=== PATIENT | female | born 1955 | race Caucasian/White ===

== ENCOUNTER 2017-01-11 12:43 | Emergency (ER) | payer MEDICARE ==
--- NOTE | 2017-01-11 13:00 | Emergency Department Record ---
History of Present Illness - General Chief Complaint: Chest Pain Stated Complaint: CHEST PRESSSURE Time Seen by Provider: 01/11/17 12:58 Source: Patient Mode of Arrival: Ambulatory Limitations: No limitations - History of Present Illness Initial Comments: The patient is here due to a 3 day hx of vague chest discomfort. She is feeling an aching pain over her sternum and R and L lateral chest area's. The discomfort is intermittent and is sometimes associated with EFREN, but no sweating or nausea. She has no hx of similar issues or pain. She also has developed a cough recently with pain in the anterior chest while coughing. There is no reported fever, chills, BRASWELL, or visual changes. MD Complaint: Chest pain Onset/Timin -: Days(s) Onset: During exertion, During rest Pain Location: Substernal, Left chest, Right chest Severity: Moderate Quality: Aching Consistency: Constant Improves With: Remaining still Worsens With: Other Context: Recent illness Anginal Symptoms: Dyspnea - Related Data Home Medications Medication Instructions Recorded Confirmed Last Taken Ascorbic Acid [Vitamin C with Bev 1,000 mg PO DAILY 08/10/15 01/11/17 1 Day Ago Hips] Aspirin [Adult Low Dose Aspirin EC] 81 mg PO DAILY 08/10/15 01/11/17 1 Day Ago Bee Pollen 550 mg PO DAILY 08/10/15 01/11/17 1 Day Ago Loperamide HCl [Anti-Diarrheal] 2 mg PO DAILY PRN 08/10/15 01/11/17 1 Day Ago Multivitamin [Multi-Vitamin Daily] 1 each PO DAILY 08/10/15 01/11/17 1 Day Ago Budesonide/Formoterol Fumarate 1 puff IH BID puff 12/28/16 01/11/17 1 Day Ago [Symbicort 160-4.5 Mcg Inhaler] Calcium Carb/Mag Ox/Zinc Sulf 1 each PO DAILY NS 12/28/16 01/11/17 1 Day Ago [Cxggxjv-Ermmurren-Rash Tablet] Cholecalciferol (Vitamin D3) 2,000 unit PO DAILY tab 12/28/16 01/11/17 1 Day Ago [Vitamin D3] Cyclobenzaprine HCl 5 mg PO 3XWEEK tab 12/28/16 01/11/17 1 Day Ago Ipratropium [place] [Atrovent Hfa] 12.9 gm IH WEEKLY inhaler 12/28/16 01/11/17 1 Day Ago Ipratropium/Albuterol Sulfate 3 ml NEB BID ml 12/28/16 01/11/17 1 Day Ago [Iprat-Albut 0.5-3(2.5) Mg/3 Ml] Naproxen Sodium [Aleve] 220 mg PO DAILY cap 12/28/16 01/11/17 1 Day Ago Pneumotrophin Pmg 1 tab TID 12/28/16 01/11/17 1 Day Ago Rhus Tox Homeopathic QID 12/28/16 1 Day Ago Women's Probiotic QHS 12/28/16 1 Day Ago Previous Rx's Medication Instructions Recorded Doxycycline Monohydrate [Mondoxyne 100 mg PO BID #14 capsule 01/11/17 Nl] Prednisone [Prednisone 20Mg] 40 mg PO DAILY #10 tab 01/11/17 Allergies Allergy/AdvReac Type Severity Reaction Status Date / Time acetaminophen [From Vicodin] Allergy HIVES Verified 01/11/17 12:48 azithromycin [From Zithromax] Allergy intense Verified 01/11/17 12:48 sweating and diarrhea hydrocodone bitartrate Allergy HIVES Verified 01/11/17 12:48 [From Vicodin] latex Allergy HIVES Verified 01/11/17 12:48 bupropion HCl AdvReac Severe swelling Verified 01/11/17 12:48 [From Wellbutrin] of tongue and throat fluoxetine HCl [From Prozac] AdvReac Intermediate not able Verified 01/11/17 12: 48 to sleep paroxetine HCl [From Paxil] AdvReac Mild constipatio Verified 01/11/17 12:48 n Travel Screening - Travel/Exposure Within Last 30 Days Have you traveled within the last 30 days?: No - Travel/Exposure Within Last Year Have you traveled outside the [place] in the last year?: No - Additonal Travel Details Have you been exposed to anyone with a communicable illness?: No - Travel Symptoms Symptom Screening: None Review of Systems Constitutional: Denies: Chills, Fever Eyes: Denies: Eye discharge ENT: Denies: Congestion Respiratory: Reports: Cough, Dyspnea (chronic.) Cardiovascular: Reports: Chest pain, Dyspnea on exertion. Denies: Arrhythmia Endocrine: Denies: Fatigue Gastrointestinal: Denies: Diarrhea, Vomiting Genitourinary: Denies: Dysuria Musculoskeletal: Denies: Back pain Skin: Denies: Bruising Past Medical History - SOCIAL HISTORY Smoking Status: Former smoker Alcohol Use: None Drug Use: None - RESPIRATORY Hx Bronchitis: Yes Hx COPD: Yes - CARDIOVASCULAR Hx Cardio Disorders: No - NEURO Hx Neuro Disorders: No - GI Hx GI Disorders: Yes Hx Abdominal Pain: Yes (all over stomach, increases w/ eating) Hx Nausea/Vomiting: Yes (nausea increases w/eating) Hx Ulcer: Yes Hx Wt Loss/Wt Gain: Yes (gain 16lbs in 1 year) Hx of Polyps: Yes Comment:: c/o bloating, barretts, h.pylori - Hx Genitourinary Disorders: Yes Hx Kidney Stones: (n/a) Hx UTI: Yes (hx of frequent UTI's) - ENDOCRINE Hx Endocrine Disorders: No - MUSCULOSKELETAL Hx Musculoskeletal Disorders: Yes Hx Arthritis: Yes - PSYCH Hx Psych Problems: Yes Hx Anxiety: Yes (n/a) Hx Depression: Yes - HEMATOLOGY/ONCOLOGY Hx Hematology/Oncology Disorders: Yes Hx Blood Transfusions: Yes (r/t [facility] 1977) Hx Blood Transfusion Reaction: No Family Medical History Any Significant Family History?: Yes Hx Cancer: Mother, Children, Brother/Sister *Cancer Comment: breast, uterine, cervical Hx Diabetes: Mother, Brother/Sister Hx Heart Disease: Brother/Sister Hx HTN: Brother/Sister Physical Exam - General General Appearance: Alert, Oriented x3, Cooperative, No acute distress - Head Head exam: Atraumatic, Normocephalic, Normal inspection - Eye Eye exam: Normal appearance, PERRL - ENT Throat exam: Normal inspection. negative: Tonsillar erythema, Tonsillar exudate - Neck Neck exam: Normal inspection, Full ROM. negative: Tenderness - Respiratory Respiratory exam: Chest wall tenderness (There is some reproducible tenderness to palpation over the sternum and lateral rib area.), Decreased breath sounds. negative: Normal lung sounds bilaterally, Accessory muscle use, Prolonged expiratory, Respiratory distress, Wheezes - Cardiovascular Cardiovascular Exam: Regular rate, Normal rhythm, Normal heart sounds - GI/Abdominal GI/Abdominal exam: Soft, Normal bowel sounds. negative: Tenderness - Extremities Extremities exam: Normal inspection, Full ROM, Normal capillary refill. negative: Tenderness - Neurological Neurological exam: Alert, Normal gait. negative: Abnormal gait, Motor sensory deficit Course Vital Signs 01/11/17 12:48 Temperature 97.6 F Pulse Rate 99 H Respiratory 16 Rate Blood Pressure 132/82 Pulse Ox 99 - Reevaluation(s) Reevaluation #1: The patient is doing very well presently and denies any SOB, EFREN or any new pain. She is still having the R and L lateral rib pain which is still 100% reproducible but denies any anterior chest pain. The patient is speaking in full sentences and has a biox on her 2 Liters of O2 of 100%. I explained to her that her tests are all WNL and that I do not believe her issues are cardiac in nature. Because of her extensive hx I did recommend keeping the patient in the hospital overnight for observation. The patient is refusing the recommendation. I explained to her by NOT staying here overnight she could go home and have an IL, stroke, become disabled and even . The patient understands and accepts the risks and understands we cannot be held liable for any bad outcomes which occur due to NOT keeping her here for further eval. The patient has proper decision making capacity and was instructed to return to the ER for any problems or changes in her pain. 01/11/17 14:39 Medical Decision Making - Data Complexity MDM Data: Labs Ordered and/or Reviewed, X-Ray Ordered and/or Reviewed, EKG Ordered and/or Reviewed - Lab Data Result diagrams: 01/11/17 13:28 01/11/17 13:28 - EKG Data -: EKG Interpreted by Me EKG: No Acute Changes, Normal EKG, Unchanged From Previous - Radiology Data Radiology results: Report reviewed (CXR: COPD, chronic changes, O/W neg.) Disposition Disposition: Discharge Clinical Impression: Chest wall discomfort Disposition: Home, Self-Care Condition: (1) Good Instructions: Chest Wall Pain (ED) Additional Instructions: Please continue your regular medicines and add the Doxycycline and Prednisone as directed. Please see your PCP early next week for recheck. Return to the ER for any increased pain, changes in your pain or any worsening symptoms. Prescriptions: Doxycycline Monohydrate [Mondoxyne Nl] 100 mg PO BID #14 capsule Prednisone [Prednisone 20Mg] 40 mg PO DAILY #10 tab Forms: Patient Portal Access Time of Disposition: 14:45
[2017-01-11] MEDS ORDERED: IPRATROPIUM/ALBUTEROL (0.5MG/3MG) NEB INH ONE (13:17)
[2017-01-11 13:34] LABS: BASO % 0.5 % (0-6); EOS % 3.8 % (0-6); GRAN % 69.4 % (47-80); HEMATOCRIT 38.8 % (35.0-47.0); HEMOGLOBIN 12.8 gm/dl (11.6-16.0); LYMPH % 19.7 % (16-45); MEAN CELL VOLUME 91.1 fl (81-97); MONO % 6.6 % (0-9); PLATELET COUNT 261 K/uL (130-400); RED BLOOD COUNT 4.26 M/uL (3.80-5.40); RED CELL DISTRIBUTION WIDTH 12.7 % (11.5-14.5); WHITE BLOOD COUNT W/O DIFF 8.4 K/uL (4.2-12.2)
[2017-01-11 13:48] LABS: ANION GAP 10.2 (7-16); BLOOD UREA NITROGEN 6 mg/dL (7-17); CARBON DIOXIDE 30.8 mmol/L (22-30); CREATINE PHOSPHOKINASE 46 U/L (30-135); CREATININE 0.6 mg/dL (0.52-1.04); EST GLOMERULAR FILTRATION RATE > 60 ml/min; GLUCOSE,RANDOM 95 mg/dL (70-110); INR 0.93; PARTIAL THROMBOPLASTIN TIME 26.4 SECONDS (24.5-39.1); PROTHROMBIN TIME (PATIENT) 10.5 SECONDS (9.5-12.1)
[2017-01-11 14:00] LABS: CKMB 1.1 ug/L (0-6); TROPONIN I < 0.012 ng/mL (0.00-0.034)
== END 2017-01-11 14:52 | disposition home or self-care (01) ==
LOC: ER 12:43
DX: R07.89 Other chest pain (principal); R05 Cough; R06.00 Dyspnea, unspecified; J44.9 Chronic obstructive pulmonary disease, unspecified; Z87.891 Personal history of nicotine dependence
CPT/HCPCS: 71020; 80048; 82550; 82553; 84484; 85025; 85610; 85730; 93005; 93010; 94640; 99284

== ENCOUNTER 2017-01-27 05:03 | Observation (INO) | payer MEDICARE ==
[2017-01-27 05:27] LABS: ALB/GLOB RATIO 1.3 (1.1-1.8); ALBUMIN 4.4 gm/dL (3.5-5.0); ALKALINE PHOSPHATASE 88 U/L (38-126); ALT/SGPT 31 U/L (9-52); ANION GAP 8.9 (7-16); AST/SGOT 30 U/L (14-36); BILIRUBIN,TOTAL 0.62 mg/dL (0.2-1.3); BLOOD UREA NITROGEN 8 mg/dL (7-17); CARBON DIOXIDE 32.1 mmol/L (22-30); CREATININE 0.5 mg/dL (0.52-1.04); EST GLOMERULAR FILTRATION RATE > 60 ml/min; GLUCOSE,RANDOM 147 mg/dL (70-110); TOTAL PROTEIN 7.7 gm/dL (6.3-8.2)
[2017-01-27 05:28] LABS: BASO % 0.7 % (0-6); EOS % 8.5 % (0-6); GRAN % 61.4 % (47-80); HEMATOCRIT 39.7 % (35.0-47.0); HEMOGLOBIN 12.8 gm/dl (11.6-16.0); LYMPH % 21.8 % (16-45); MEAN CELL VOLUME 91.5 fl (81-97); MEAN CORPUSCULAR HEMOGLOBIN 29.5 pg (27-33); MEAN CORPUSCULAR HGB CONC 32.2 g/dl (32-36); MEAN PLATELET VOLUME 9.7 fl (7.4-10.4); MONO % 7.6 % (0-9); PLATELET COUNT 316 K/uL (130-400); RED BLOOD COUNT 4.34 M/uL (3.80-5.40); RED CELL DISTRIBUTION WIDTH 12.8 % (11.5-14.5); WHITE BLOOD COUNT W/O DIFF 10.5 K/uL (4.2-12.2)
[2017-01-27] MEDS ORDERED: IPRATROPIUM/ALBUTEROL (0.5MG/3MG) NEB INH ONE (05:29)
--- NOTE | 2017-01-27 05:32 | Emergency Department Record ---
History of Present Illness - General Chief Complaint: Shortness of breath Stated Complaint: EFREN Time Seen by Provider: 01/27/17 05:23 Source: Patient Mode of Arrival: EMS Limitations: No limitations - History of Present Illness Initial Comments: The patient is here due to a 2 day hx of cough and SOB. She denies any CP, fever , or chills but is having mild nausea. She has a long hx of COPD and is on home . The patient did see her PCP Maggy Carpenter on 01/16/17 and was placed on 7 days of Levaquin which she just finished. Complaint: Cough, Shortness of breath Onset/Timin -: Days(s) Severity scale (1-10): 7 Consistency: Intermittent Known History Of: COPD Treatments Prior to Arrival: Bronchodilator - Related Data Home Oxygen Therapy: Yes Home Oxygen Amount: 2 Liters Home Medications Medication Instructions Recorded Confirmed Last Taken Ascorbic Acid [Vitamin C with Bev 1,000 mg PO DAILY 08/10/15 01/27/17 1 Day Ago Hips] Aspirin [Adult Low Dose Aspirin EC] 81 mg PO DAILY 08/10/15 01/27/17 1 Day Ago Bee Pollen 550 mg PO DAILY 08/10/15 01/27/17 1 Day Ago Loperamide HCl [Anti-Diarrheal] 2 mg PO DAILY PRN 08/10/15 01/27/17 1 Day Ago Multivitamin [Multi-Vitamin Daily] 1 each PO DAILY 08/10/15 01/27/17 1 Day Ago Calcium Carb/Mag Ox/Zinc Sulf 1 each PO DAILY NS 12/28/16 01/27/17 1 Day Ago [Eabxumd-Lywjkvhuz-Jdut Tablet] Cholecalciferol (Vitamin D3) 2,000 unit PO DAILY tab 12/28/16 01/27/17 1 Day Ago [Vitamin D3] Cyclobenzaprine HCl 5 mg PO 3XWEEK tab 12/28/16 01/27/17 1 Day Ago Ipratropium/Albuterol Sulfate 3 ml NEB BID ml 12/28/16 01/27/17 1 Day Ago [Iprat-Albut 0.5-3(2.5) Mg/3 Ml] Naproxen Sodium [Aleve] 220 mg PO DAILY cap 12/28/16 01/27/17 1 Day Ago Pneumotrophin Pmg 1 tab PO TID 12/28/16 01/27/17 1 Day Ago Rhus Tox Homeopathic 1 each PO QID 12/28/16 01/27/17 1 Day Ago Women's Probiotic 1 tab PO QHS 12/28/16 01/27/17 1 Day Ago Pulsatilla 4 tab PO QID 01/16/17 01/27/17 Unknown Budesonide/Formoterol Fumarate 1 inh IH BID 01/27/17 01/27/17 Unknown [Symbicort 160-4.5 Mcg Inhaler] Hydroxyzine Pamoate [Vistaril] 25 mg PO Q6H 01/27/17 01/27/17 Unknown Ipratropium [place] [Atrovent Hfa] 12.9 gm IH WEEKLY 01/27/17 01/27/17 Unknown Allergies Allergy/AdvReac Type Severity Reaction Status Date / Time bupropion HCl Allergy SWELLING Verified 01/27/17 05:45 [From Wellbutrin] OF THE TONGUE hydrocodone bitartrate Allergy HIVES Verified 01/27/17 05:45 [From Vicodin] latex Allergy HIVES Verified 01/27/17 05:45 azithromycin [From Zithromax] AdvReac DIARRHEA Verified 01/27/17 05:45 fluoxetine HCl [From Prozac] AdvReac insomnia Verified 01/27/17 05:45 paroxetine HCl [From Paxil] AdvReac CONSTIPATIO Verified 01/27/17 05:45 N Travel Screening - Travel/Exposure Within Last 30 Days Have you traveled within the last 30 days?: No - Travel Symptoms Symptom Screening: None Review of Systems Constitutional: Denies: Chills, Fever Eyes: Denies: Eye discharge ENT: Reports: Congestion Respiratory: Reports: Cough, Dyspnea Cardiovascular: Denies: Chest pain Endocrine: Denies: Fatigue Gastrointestinal: Denies: Diarrhea Genitourinary: Denies: Dysuria Musculoskeletal: Denies: Back pain Skin: Denies: Bruising Past Medical History - SOCIAL HISTORY Smoking Status: Former smoker - RESPIRATORY Hx Respiratory Disorders: Yes Hx Bronchitis: Yes Hx COPD: Yes - CARDIOVASCULAR Hx Cardio Disorders: No - NEURO Hx Neuro Disorders: No - GI Hx GI Disorders: Yes Hx Abdominal Pain: Yes (all over stomach, increases w/ eating) Hx Nausea/Vomiting: Yes (nausea increases w/eating) Hx Ulcer: Yes Hx Wt Loss/Wt Gain: Yes (gain 16lbs in 1 year) Hx of Polyps: Yes Comment:: c/o bloating, barretts, h.pylori - Hx Genitourinary Disorders: Yes Hx Kidney Stones: (n/a) Hx UTI: Yes (hx of frequent UTI's) - ENDOCRINE Hx Endocrine Disorders: No - MUSCULOSKELETAL Hx Musculoskeletal Disorders: Yes Hx Arthritis: Yes - PSYCH Hx Psych Problems: Yes Hx Anxiety: Yes (n/a) Hx Depression: Yes - HEMATOLOGY/ONCOLOGY Hx Hematology/Oncology Disorders: Yes Hx Blood Transfusions: Yes (r/t [facility] 1977) Hx Blood Transfusion Reaction: No Family Medical History Any Significant Family History?: Yes Hx Cancer: Mother, Children, Brother/Sister *Cancer Comment: breast, uterine, cervical Hx Diabetes: Mother, Brother/Sister Hx Heart Disease: Brother/Sister Hx HTN: Brother/Sister Physical Exam - General General Appearance: Alert, Oriented x3, Cooperative, No acute distress - Head Head exam: Atraumatic, Normocephalic, Normal inspection - Eye Eye exam: Normal appearance, PERRL - ENT Throat exam: Normal inspection. negative: Tonsillar erythema, Tonsillar exudate - Neck Neck exam: Normal inspection, Full ROM. negative: Tenderness - Respiratory Respiratory exam: Accessory muscle use (mild.), Decreased breath sounds, Prolonged expiratory, Wheezes. negative: Normal lung sounds bilaterally (The patient is able to speak in full sentences with little effort.), Respiratory distress - Cardiovascular Cardiovascular Exam: Regular rate, Normal rhythm, Normal heart sounds - GI/Abdominal GI/Abdominal exam: Soft, Normal bowel sounds. negative: Tenderness - Extremities Extremities exam: Normal inspection, Full ROM, Normal capillary refill. negative: Tenderness - Neurological Neurological exam: Alert, Normal gait. negative: Abnormal gait, Motor sensory deficit Course Vital Signs 01/27/17 01/27/17 01/27/17 05:10 05:12 05:24 Temperature 97.8 F Pulse Rate 104 H Pulse Rate [ 101 H Metal Riveter ] Pulse Rate [ 105 H Pulse Ox Probe] Respiratory 14 20 12 Rate Blood Pressure 149/120 107/76 [Left Arm] Pulse Ox 98 100 - Reevaluation(s) Reevaluation #1: The patient is doing better but still having significant EFREN. She does not want anther breathing tx. She has had 2 Duoneb and an Albuterol tx since EMS arrived and since she has been here in the ER. Due to her persistent EFREN we will admit the patient here at [facility]. 01/27/17 06:17 Reevaluation #2: The patient's breathing is slightly improved but she still has significantly decreased aeration and wheezing at the bases. 01/27/17 06:24 Medical Decision Making - Data Complexity MDM Data: Labs Ordered and/or Reviewed, X-Ray Ordered and/or Reviewed, EKG Ordered and/or Reviewed - Lab Data Result diagrams: 01/27/17 04:30 01/27/17 04:30 Lab Results 01/27/17 01/27/17 Range/Units 04:30 04:30 WBC 10.5 (4.2-12.2) K/uL RBC 4.34 (3.80-5.40) M/uL Hgb 12.8 (11.6-16.0) gm/dl Hct 39.7 (35.0-47.0) % MCV 91.5 (81-97) fl MCH 29.5 (27-33) pg MCHC 32.2 (32-36) g/dl RDW 12.8 (11.5-14.5) % Plt Count 316 (130-400) K/uL MPV 9.7 (7.4-10.4) fl Gran % 61.4 (47-80) % Lymphocytes % 21.8 (16-45) % Monocytes % 7.6 (0-9) % Eosinophils % 8.5 H (0-6) % Basophils % 0.7 (0-6) % Sodium 138 (136-145) mmol/L Potassium 4.3 (3.5-5.1) mmol/L Chloride 97 L (98-107) mmol/L Carbon Dioxide 32.1 H (22-30) mmol/L Anion Gap 8.9 (7-16) BUN 8 (7-17) mg/dL Creatinine 0.5 L (0.52-1.04) mg/dL Estimated GFR > 60 ml/min Random Glucose 147 H (70-110) mg/dL Calcium 9.0 (8.5-10.1) mg/dL Total Bilirubin 0.62 (0.2-1.3) mg/dL AST 30 (14-36) U/L ALT 31 (9-52) U/L Alkaline Phosphatase 88 (38-126) U/L Total Protein 7.7 (6.3-8.2) gm/dL Albumin 4.4 (3.5-5.0) gm/dL Globulin 3.3 (1.4-4.8) gm/dL Albumin/Globulin Ratio 1.3 (1.1-1.8) - EKG Data -: EKG Interpreted by Me EKG: No Acute Changes - Radiology Data Radiology results: Report reviewed (CXR: Severe COPD, no acute changes.) Disposition Disposition: Admit Clinical Impression: COPD exacerbation Decision to Admit: Admit from ER Decision to Admit Date: 01/27/17 Decision to Admit Time: 06:18 Accepting Physician: Nadege Time Discussed w/Accepting Physician: 06:19 Forms: Patient Portal Access Time of Disposition: 06:19
[2017-01-27 05:52] LABS: CREATINE PHOSPHOKINASE 72 U/L (30-135)
[2017-01-27 06:14] LABS: TROPONIN I < 0.012 ng/mL (0.00-0.034)
[2017-01-27] MEDS ORDERED: CYCLOBENZAPRINE 10MG TABLET PO ONE (07:23)
[2017-01-27] MEDS ORDERED: ALBUTEROL SULFATE (0.083%) 2.5 MG/3 ML NEB INH ONE (09:45)
[2017-01-27] MEDS ORDERED: ESCITALOPRAM OXALATE 5 MG PO SCH (13:46)
[2017-01-27] MEDS ORDERED: HYDROXYZINE PAMOATE 25 MG CAPSULE PO SCH (13:46)
[2017-01-27] MEDS ORDERED: CYCLOBENZAPRINE 10MG TABLET PO PRN (14:44)
[2017-01-27] MEDS ORDERED: NAPROXEN 250 MG TABLET PO PRN (14:45)
[2017-01-27] MEDS: IPRATROPIUM/ALBUTEROL (0.5MG/3MG) NEB INH SCH ×4 (14:47→21:54)
--- NOTE | 2017-01-27 14:49 | History & Physical ---
History of Present Illness - Date of Service Date of Service for History & Physical: 01/27/17 - History of Present Illness Admitting Diagnosis: 1. COPD Excacerbation. History of Present Illness: 61 yo F with past medical history of COPD, barrets esophagus, arthritis, anxiety /depression, former smoker, presented to ED last night for 2 day hx of cough and SOB. She denies any CP, fever, or chills but is having mild nausea. She has a long hx of COPD and is on home . The patient did see her PCP Maggy Carpenter on 01/16/17 and was placed on 7 days of Levaquin which she just finished. Clinic Note: from 01/16/17 since late last fall pt has been in and out of [facility] w/exacerbations of COPD. PT repsented last week with chestpain and looking unhealthy. in consultation with Dr Light sent pt to ER for work up - negative cardiac work up and pt refused overnight admit although advised to be admitted for monitoring/observation. pain likely skelatal muscle from use of chest muscle to breathing and from coughing. Travel Screening - Travel/Exposure Within Last 30 Days Have you traveled within the last 30 days?: No - Travel/Exposure Within Last Year Have you traveled outside the [place] in the last year?: No - Additonal Travel Details Have you been exposed to anyone with a communicable illness?: No - Travel Symptoms Symptom Screening: None Review of Systems Constitutional: Denies: Chills, Fever Eyes: Denies: Eye discharge ENT: Reports: Congestion Respiratory: Reports: Cough, Dyspnea Cardiovascular: Denies: Chest pain Endocrine: Denies: Fatigue Gastrointestinal: Denies: Diarrhea Genitourinary: Denies: Dysuria Musculoskeletal: Denies: Back pain Skin: Denies: Bruising Past Medical History - SOCIAL HISTORY Smoking Status: Former smoker - RESPIRATORY Hx Respiratory Disorders: Yes Hx Bronchitis: Yes Hx COPD: Yes - CARDIOVASCULAR Hx Cardio Disorders: No - NEURO Hx Neuro Disorders: No - GI Hx GI Disorders: Yes Hx Abdominal Pain: Yes (all over stomach, increases w/ eating) Hx Nausea/Vomiting: Yes (nausea increases w/eating) Hx Ulcer: Yes Hx Wt Loss/Wt Gain: Yes (gain 16lbs in 1 year) Hx of Polyps: Yes Comment:: c/o bloating, barretts, h.pylori - Hx Genitourinary Disorders: Yes Hx Kidney Stones: (n/a) Hx UTI: Yes (hx of frequent UTI's) - ENDOCRINE Hx Endocrine Disorders: No - MUSCULOSKELETAL Hx Musculoskeletal Disorders: Yes Hx Arthritis: Yes - PSYCH Hx Psych Problems: Yes Hx Anxiety: Yes (n/a) Hx Depression: Yes - HEMATOLOGY/ONCOLOGY Hx Hematology/Oncology Disorders: Yes Hx Blood Transfusions: Yes (r/t [facility] 1977) Hx Blood Transfusion Reaction: No Family Medical History Any Significant Family History?: Yes Hx Cancer: Mother, Children, Brother/Sister *Cancer Comment: breast, uterine, cervical Hx Diabetes: Mother, Brother/Sister Hx Heart Disease: Brother/Sister Hx HTN: Brother/Sister H&P Meds/Allergies - Allergies Allergies: Allergies Allergy/AdvReac Type Severity Reaction Status Date / Time bupropion HCl Allergy SWELLING Verified 01/27/17 05:45 [From Wellbutrin] OF THE TONGUE hydrocodone bitartrate Allergy HIVES Verified 01/27/17 05:45 [From Vicodin] latex Allergy HIVES Verified 01/27/17 05:45 azithromycin [From Zithromax] AdvReac DIARRHEA Verified 01/27/17 05:45 fluoxetine HCl [From Prozac] AdvReac insomnia Verified 01/27/17 05:45 paroxetine HCl [From Paxil] AdvReac CONSTIPATIO Verified 01/27/17 05:45 N - Home Medications Home Medications Medication Instructions Recorded Confirmed Last Taken Ascorbic Acid [Vitamin C with Bev 1,000 mg PO DAILY 08/10/15 01/27/17 1 Day Ago Hips] Aspirin [Adult Low Dose Aspirin EC] 81 mg PO DAILY 08/10/15 01/27/17 1 Day Ago Bee Pollen 550 mg PO DAILY 08/10/15 01/27/17 1 Day Ago Loperamide HCl [Anti-Diarrheal] 2 mg PO DAILY PRN 08/10/15 01/27/17 1 Day Ago Multivitamin [Multi-Vitamin Daily] 1 each PO DAILY 08/10/15 01/27/17 1 Day Ago Calcium Carb/Mag Ox/Zinc Sulf 1 each PO DAILY NS 12/28/16 01/27/17 1 Day Ago [Sbjljxv-Aobobcvgf-Fhvx Tablet] Cholecalciferol (Vitamin D3) 2,000 unit PO DAILY tab 12/28/16 01/27/17 1 Day Ago [Vitamin D3] Cyclobenzaprine HCl 5 mg PO 3XWEEK tab 12/28/16 01/27/17 1 Day Ago Ipratropium/Albuterol Sulfate 3 ml NEB BID ml 12/28/16 01/27/17 1 Day Ago [Iprat-Albut 0.5-3(2.5) Mg/3 Ml] Naproxen Sodium [Aleve] 220 mg PO DAILY cap 12/28/16 01/27/17 1 Day Ago Pneumotrophin Pmg 1 tab PO TID 12/28/16 01/27/17 1 Day Ago Rhus Tox Homeopathic 1 each PO QID 12/28/16 01/27/17 1 Day Ago Women's Probiotic 1 tab PO QHS 12/28/16 01/27/17 1 Day Ago Pulsatilla 4 tab PO QID 01/16/17 01/27/17 Unknown Budesonide/Formoterol Fumarate 1 inh IH BID 01/27/17 01/27/17 Unknown [Symbicort 160-4.5 Mcg Inhaler] Hydroxyzine Pamoate [Vistaril] 25 mg PO Q6H 01/27/17 01/27/17 Unknown Ipratropium [place] [Atrovent Hfa] 12.9 gm IH WEEKLY 01/27/17 01/27/17 Unknown - Active Medications Active Medications: Current Medications Albuterol/Ipratropium (Duoneb) 3 ml INH RESP.Q4H.[facility] Aspirin (Ecotrin (Ec)) 81 mg PO DAILY [facility] Cyclobenzaprine HCl (Flexeril) 5 mg PO DAILY PRN PRN Reason: BACK SPASM Methylprednisolone Sodium Succinate (Solu-Medrol) 60 mg IVP DAILY [facility] Naproxen (Naprosyn) 250 mg PO DAILY PRN PRN Reason: Pain - General Fluticasone/Salmeterol (Advair 250/50) 1 puff INH BID [facility] Physical Exam - Vital Signs Vital Signs: Vital Signs - Last 24 Hrs Temp Pulse Pulse Pulse Resp BP BP 01/27/17 13:46 97.7 F 109 H 109 H 16 115/69 01/27/17 13:00 98 F 106 H 19 106/75 Pulse Ox 01/27/17 13:46 96 01/27/17 13:00 95 - General General Appearance: Alert, Oriented x3, Cooperative, No acute distress Limitations: No limitations - Head Head exam: Atraumatic, Normocephalic, Normal inspection - Eye Eye exam: Normal appearance, PERRL - ENT Throat exam: Normal inspection. negative: Tonsillar erythema, Tonsillar exudate - Neck Neck exam: Normal inspection, Full ROM. negative: Tenderness - Respiratory Respiratory exam: Accessory muscle use (mild.), Decreased breath sounds, Prolonged expiratory, Wheezes. negative: Normal lung sounds bilaterally (The patient is able to speak in full sentences with little effort.), Respiratory distress - Cardiovascular Cardiovascular Exam: Regular rate, Normal rhythm, Normal heart sounds - GI/Abdominal GI/Abdominal exam: Soft, Normal bowel sounds. negative: Tenderness - Extremities Extremities exam: Normal inspection, Full ROM, Normal capillary refill. negative: Tenderness - Neurological Neurological exam: Alert, Normal gait. negative: Abnormal gait, Motor sensory deficit Results - Labs Result Diagrams: 01/27/17 04:30 01/27/17 04:30 VTE H&P Assessment - Risk for VTE Risk for VTE: Yes Risk Level: Moderate Risk Assessment Date: 01/27/17 Risk Assessment Time: 17:48 VTE Orders Placed or Will Be Placed: Yes Plan - Detailed Diagnosis and Plan (1) COPD exacerbation Current Visit: Yes Status: Acute Base Code: J44.1 - CHRONIC OBSTRUCTIVE PULMONARY DISEASE W (ACUTE) EXACERBATION Comment: 01/27/17- will place of COPD pathway. already completed 7 day course of levaquin and had been on contiueous course of steroids. Patient at rest is on 2L of oxygen extending out to 4L of oxygen with activity. Will place referral for outpatient pulmonology and increase steroids to 80mg daily. patient to remain on oxygen as per previous to keep oxygen sats 88-92%. On LAMA, LABA, ANTONINO , and inhaled corticosteroid already. Anticipate discharge tomorrow with follow up outpatient. At present prognosis unsure but nothing more can be done while inpatient. 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 Patient is very sensitive to many SSRIs and other medications. She states she best tolerated prozac but needs to take it in the morning so it doesn't keep her awake during the night.
[2017-01-27] MEDS: ASPIRIN 81 MG TABEC PO SCH (17:48)
[2017-01-27] MEDS: FLUTICASONE/SALMETEROL 250/50 DISKUS INH SCH ×2 (18:15→21:55)
[2017-01-27] MEDS: CLONAZEPAM 1MG TABLET PO SCH (18:54)
[2017-01-27] MEDS: GUAIFENESIN/D-METH. 10 ML UDC PO PRN (18:56)
[2017-01-28] MEDS: IPRATROPIUM/ALBUTEROL (0.5MG/3MG) NEB INH SCH ×4 (02:29→13:49)
[2017-01-28] MEDS: FLUTICASONE/SALMETEROL 250/50 DISKUS INH SCH (06:17)
[2017-01-28 06:28] LABS: HEMATOCRIT 35.6 % (35.0-47.0); HEMOGLOBIN 11.3 gm/dl (11.6-16.0); MEAN CELL VOLUME 92.5 fl (81-97); MEAN CORPUSCULAR HGB CONC 31.7 g/dl (32-36); MEAN PLATELET VOLUME 9.4 fl (7.4-10.4); PLATELET COUNT 271 K/uL (130-400); RED BLOOD COUNT 3.85 M/uL (3.80-5.40); RED CELL DISTRIBUTION WIDTH 12.8 % (11.5-14.5); WHITE BLOOD COUNT W/O DIFF 12.1 K/uL (4.2-12.2)
[2017-01-28 06:33] LABS: ALB/GLOB RATIO 1.3 (1.1-1.8); ALBUMIN 3.8 gm/dL (3.5-5.0); ALKALINE PHOSPHATASE 72 U/L (38-126); ALT/SGPT 29 U/L (9-52); AST/SGOT 18 U/L (14-36); BLOOD UREA NITROGEN 7 mg/dL (7-17); CREATININE 0.6 mg/dL (0.52-1.04); EST GLOMERULAR FILTRATION RATE > 60 ml/min; GLUCOSE,RANDOM 98 mg/dL (70-110); TOTAL PROTEIN 6.8 gm/dL (6.3-8.2)
[2017-01-28 06:45] LABS: MEAN CORPUSCULAR HEMOGLOBIN 29.3 pg (27-33)
[2017-01-28] MEDS: GUAIFENESIN/D-METH. 10 ML UDC PO PRN (07:03)
[2017-01-28] MEDS: CLONAZEPAM 1MG TABLET PO SCH (07:07)
[2017-01-28 07:29] LABS: PLATELET ESTIMATE NORMAL (NORMAL)
[2017-01-28] MEDS ORDERED: METHYLPREDNISOLONE PF 125MG/VIAL IVP SCH ×2 (10:00)
[2017-01-28] MEDS: ASPIRIN 81 MG TABEC PO SCH (10:32)
[2017-01-28] MEDS ORDERED: 0.9 % SODIUM CHLORIDE 10ML SYR IVP SCH (10:45)
--- NOTE | 2017-01-28 13:21 | Discharge Summary ---
Providers Discharge Summary Date: 01/28/17 Date of admission: 01/27/17 12:54 Expected Date of Discharge: 01/28/17 Attending physician: LUNA LEE Physical Exam - Vital Signs Vital Signs: Vital Signs - Last 24 Hrs Temp Pulse Pulse Pulse Resp BP Pulse Ox 01/28/17 09:44 110 H 22 97 01/28/17 09:00 107 H 22 01/28/17 08:43 95 H 20 120/67 96 01/28/17 06:17 92 H 18 01/28/17 06:13 101 H 18 98 01/28/17 02:29 96 H 16 99 01/28/17 01:00 98.3 F 95 H 12 113/58 99 01/27/17 21:54 100 H 20 94 L 01/27/17 18:47 95 01/27/17 18:20 98 H 22 96 01/27/17 18:19 98 H 22 96 01/27/17 17:06 101.8 F H 01/27/17 15:25 108 H 22 96 01/27/17 13:46 97.7 F 109 H 109 H 16 115/69 96 01/27/17 13:30 109 H 109 H 20 - General General Appearance: Alert, Oriented x3, Cooperative, No acute distress Limitations: No limitations - Head Head exam: Atraumatic, Normocephalic, Normal inspection - Eye Eye exam: Normal appearance, PERRL - ENT Throat exam: Normal inspection. negative: Tonsillar erythema, Tonsillar exudate - Neck Neck exam: Normal inspection, Full ROM. negative: Tenderness - Respiratory Respiratory exam: Accessory muscle use (mild.), Decreased breath sounds, Prolonged expiratory. negative: Normal lung sounds bilaterally (The patient is able to speak in full sentences with little effort.), Respiratory distress - Cardiovascular Cardiovascular Exam: Regular rate, Normal rhythm, Normal heart sounds - GI/Abdominal GI/Abdominal exam: Soft, Normal bowel sounds. negative: Tenderness - Extremities Extremities exam: Normal inspection, Full ROM, Normal capillary refill. negative: Tenderness - Neurological Neurological exam: Alert, Normal gait. negative: Abnormal gait, Motor sensory deficit Hospitalization - Hospitalization Admission Diagnosis: 1. COPD Excacerbation. - Problem List/Discharge Diagnosis (1) COPD exacerbation Current Visit: Yes Status: Acute Base Code: J44.1 - CHRONIC OBSTRUCTIVE PULMONARY DISEASE W (ACUTE) EXACERBATION Comment: 01/28/17- placed on COPD pathway. already completed 7 day course of levaquin and had been on continuous course of steroids. Patient at rest is on 2L of oxygen extending out to 4L of oxygen with activity. Will place referral for outpatient pulmonology and increase steroids to 80mg daily. patient to remain on oxygen as per previous to keep oxygen sats 88-92%. On LAMA, LABA, ANTONINO , and inhaled corticosteroid already with symbicort and duoneb. Patient has nebulizer at home. Will follow up outpatient with primary provider next week. At present prognosis unsure but needs to follow up with pulmonary outpatient. (2) Anxiety disorder due to medical condition Current Visit: Yes Status: Acute Base Code: F41.8 - OTHER SPECIFIED ANXIETY DISORDERS Comment: 01/28- will give short trial of clonazepam until we restart prozac outpatient to take in morning. Patient is very sensitive to many SSRIs and other medications. She states she best tolerated prozac but needs to take it in the morning so it doesn't keep her awake during the night. Patient aware short course of benzo and to take at night. - Hospitalization Course Disposition: Home, Self-Care Abnormal Labs: Abnormal Lab Results 01/28/17 01/28/17 Range/Units 06:05 06:05 Hgb 11.3 L (11.6-16.0) gm/dl MCHC 31.7 L (32-36) g/dl Neutrophils % 84.0 H (47-80) % Lymphocytes % 12.0 L (16-45) % Carbon Dioxide 32.0 H (22-30) mmol/L Condition at Discharge: (2) Stable Discharge Medications - Discharge Medications Prescriptions: Clonazepam [Klonopin] 1 mg PO Q12H #60 tablet Budesonide/Formoterol Fumarate [Symbicort 160-4.5 Mcg Inhaler] 2 puff IH BID #1 hfa.aer.ad Home Medications: Ambulatory Orders Ascorbic Acid [Vitamin C with Bev Hips] 1,000 mg PO DAILY 08/10/15 [Last Taken 1 Day Ago] Aspirin [Adult Low Dose Aspirin EC] 81 mg PO DAILY 08/10/15 [Last Taken 1 Day Ago] Bee Pollen 550 mg PO DAILY 08/10/15 [Last Taken 1 Day Ago] Loperamide HCl [Anti-Diarrheal] 2 mg PO DAILY PRN 08/10/15 [Last Taken 1 Day Ago ] Multivitamin [Multi-Vitamin Daily] 1 each PO DAILY 08/10/15 [Last Taken 1 Day Ago] Calcium Carb/Mag Ox/Zinc Sulf [Hhmvqrx-Yzjvvzyly-Llrn Tablet] 1 each PO DAILY NS 12/28/16 [Last Taken 1 Day Ago] Cholecalciferol (Vitamin D3) [Vitamin D3] 2,000 unit PO DAILY tab 12/28/16 [ Last Taken 1 Day Ago] Cyclobenzaprine HCl 5 mg PO 3XWEEK tab 12/28/16 [Last Taken 1 Day Ago] Ipratropium/Albuterol Sulfate [Iprat-Albut 0.5-3(2.5) mg/3 ml] 3 ml NEB BID ml 12/28/16 [Last Taken 1 Day Ago] Naproxen Sodium [Aleve] 220 mg PO DAILY cap 12/28/16 [Last Taken 1 Day Ago] Pneumotrophin Pmg 1 tab PO TID 12/28/16 [Last Taken 1 Day Ago] Rhus Tox Homeopathic 1 each PO QID 12/28/16 [Last Taken 1 Day Ago] Women's Probiotic 1 tab PO QHS 12/28/16 [Last Taken 1 Day Ago] Pulsatilla 4 tab PO QID 01/16/17 [Last Taken Unknown] Hydroxyzine Pamoate [Vistaril] 25 mg PO Q6H 01/27/17 [Last Taken Unknown] Ipratropium [place] [Atrovent Hfa] 12.9 gm IH WEEKLY 01/27/17 [Last Taken Unknown] Budesonide/Formoterol Fumarate [Symbicort 160-4.5 Mcg Inhaler] 2 puff IH BID #1 hfa.aer.ad 01/28/17 [Last Taken Unknown] Clonazepam [Klonopin] 1 mg PO Q12H #60 tablet 01/28/17 [Last Taken Unknown] Ipratropium/Albuterol [Duoneb] 3 ml INH RESP.Q4H.WA ampul.neb 01/28/17 [Last Taken Unknown] Discharge Plan - Discharge Instructions Activity at Discharge: Increase Activity as Tolerated, Wear Oxygen At All Times Additional Instructions: Take your symbicort as TWO puffs TWICE a day. Do Dueneb with nebulizer every 4 hours.
--- NOTE | 2017-01-30 07:47 | RADIOLOGY REPORT ---
EXAM: CHEST, TWO VIEWS HISTORY: DIFFICULTY BREATHING. TECHNIQUE: Frontal and lateral views of the chest were obtained. Comparison: Prior chest 01/11/17. FINDINGS: The heart size is normal. Underlying emphysema. Minor biapical pleural thickening. Calcified granuloma left lung base. Osteopenia. No pneumothorax. The lungs are otherwise clear. IMPRESSION: EMPHYSEMA. NO ACUTE CARDIOPULMONARY PROCESS. JOB NUMBER: [id number] MTDD
== END 2017-01-28 16:58 | disposition home or self-care (01) ==
LOC: ER 05:03 → MEDSURG 12:54
PROVIDERS: ADMIT Family Medicine; ATTEND Family Medicine
DX: J44.1 Chronic obstructive pulmonary disease with (acute) exacerbation (principal); F41.8 Other specified anxiety disorders
CPT/HCPCS: 93041; 99285 ×2; 94760; 82550; 85025; 82553; 84484; 80053 ×2; 85027; 71020; 94640 ×5; 94761 ×2; 93005; 93010; G0378 ×2; 99217; 99220; J2930; J7613